=== PATIENT | female | born 1980 | race Native Hawaiian/Other Pacific Islander ===

== ENCOUNTER 2023-02-11 18:13 | Emergency (ER) | payer OTHER ==
[~2023-02-11] VITALS: Ht 160 cm; Wt 99.8 kg
[2023-02-11 18:41] LABS: PLATELET COUNT 341 K/uL (152-353)
[2023-02-11 18:46] LABS: POTASSIUM 3.3 mmol/L (3.6-5.2)
[2023-02-11 20:50] VITALS: BP 107/65; TEMP 97.6
[2023-02-12] MEDS ORDERED: FLUTMIS6 INH (07:43)
[2023-02-12] MEDS ORDERED: BENZ1TAB43 PO (07:45)
[2023-02-12] MEDS ORDERED: TOLNAFTATE TOP (07:45)
[2023-02-12] MEDS ORDERED: CARB200T42 PO (07:47)
[2023-02-12] MEDS ORDERED: DIVA250T PO (07:48)
[2023-02-12] MEDS ORDERED: FISH OIL OMEGA-1 CAP PO (07:49)
[2023-02-12] MEDS ORDERED: ZIPR80CA PO (07:49)
[2023-02-12] MEDS ORDERED: HYDR25TA60 PO (07:50)
[2023-02-12] MEDS ORDERED: CLON1TAB18 PO (07:51)
[2023-02-12] MEDS ORDERED: KETOCONAZOLE21 TOP (07:51)
[2023-02-12] MEDS ORDERED: KLOR-CON M1010 MEQ PO (07:52)
[2023-02-12] MEDS ORDERED: FURO20TA67 PO (07:55)
[2023-02-12] MEDS ORDERED: LACTULOSE10 GM/15 M PO (07:55)
[2023-02-12] MEDS ORDERED: LEVE500T5 PO (07:56)
[2023-02-12] MEDS ORDERED: LEVO0.0218 PO (07:57)
[2023-02-12] MEDS ORDERED: MOBIC7.5 M1 PO (07:58)
[2023-02-12] MEDS ORDERED: METO-837 PO (07:58)
[2023-02-12] MEDS ORDERED: ZYPREXA ZYDI5 MG PO (08:00)
[2023-02-12] MEDS ORDERED: OMEPRAZOLE DR20 MG PO (08:00)
[2023-02-12] MEDS ORDERED: ROPINIROLE0.25 MG PO (08:01)
[2023-02-12] MEDS ORDERED: RISPERIDONE PO (08:04)
[2023-02-12] MEDS ORDERED: SODI1TAB PO (08:05)
[2023-02-12] MEDS ORDERED: TRAM50TA PO (08:06)
[2023-02-12] MEDS ORDERED: ONDANSETRON4 M2 PO (08:07)
[2023-02-18] MEDS ORDERED: FURO20TA67 PO (13:02)
[2023-02-18] MEDS ORDERED: DIVALPROEX250 MG PO (13:02)
[2023-02-18] MEDS ORDERED: CLON0.5T36 PO (13:02)
[2023-02-18] MEDS ORDERED: LEVE500T5 PO (13:02)
[2023-02-18] MEDS ORDERED: HYDR25TA60 PO (13:02)
[2023-02-18] MEDS ORDERED: LACTSYP31 PO (13:03)
[2023-02-18] MEDS ORDERED: LEVOFLOXACIN500 MG PO (13:04)
[2023-02-18] MEDS ORDERED: LEVO0.0529 PO (13:04)
[2023-02-18] MEDS ORDERED: OLANZAPINE5 MG PO (13:05)
[2023-02-18] MEDS ORDERED: PANTOPRAZOLE 40MG TA PO (13:05)
[2023-02-18] MEDS ORDERED: MELOXICAM7.5 MG PO (13:05)
[2023-02-18] MEDS ORDERED: METO-837 PO (13:05)
[2023-02-18] MEDS ORDERED: ULTRAM 50MG TAB PO (13:06)
[2023-02-18] MEDS ORDERED: SOD CHLORIDE1 GM PO (13:06)
[2023-02-18] MEDS ORDERED: POTA10CA3 PO (13:06)
== END 2023-02-11 20:50 | disposition other institution (70) ==
LOC: ED 18:13
PROVIDERS: Family Medicine
DX: F29 Unspecified psychosis not due to a substance or known physiological condition (principal); F20.9 Schizophrenia, unspecified; Z02.79 Encounter for issue of other medical certificate
CPT/HCPCS: 36415; 80053; 81000; 85027; 87077; 87086; 87088; 87186; 87635; 93005; 99283; U0003

== ENCOUNTER 2023-03-18 16:40 | Emergency (ER) | payer OTHER ==
[~2023-03-18] VITALS: Ht 160 cm; Wt 96.6 kg
[~2023-03-18 16:40] MED LIST: BENZ1TAB43 PO; CARB200T42 PO; CLON0.5T36 PO; CLON1TAB18 PO; DIVA250T PO; DIVALPROEX250 MG PO; FISH OIL OMEGA-1 CAP PO; FLUTMIS6 INH; FURO20TA67 PO; HALO5INJ3 IM; HYDR25TA60 PO; KETOCONAZOLE21 TOP; KLOR-CON M1010 MEQ PO; LACTSYP31 PO; LACTULOSE10 GM/15 M PO; LEVE500T5 PO; LEVO0.0218 PO; LEVO0.0529 PO; LEVOFLOXACIN500 MG PO; MELOXICAM7.5 MG PO; METO-837 PO; MOBIC7.5 M1 PO; OLANZAPINE5 MG PO; OMEPRAZOLE DR20 MG PO; ONDANSETRON4 M2 PO; PANTOPRAZOLE 40MG TA PO; POTA10CA3 PO; RISPERIDONE PO; ROPINIROLE0.25 MG PO; SOD CHLORIDE1 GM PO; SODI1TAB PO; TOLNAFTATE TOP; TRAM50TA PO; ULTRAM 50MG TAB PO; ZIPR80CA PO; ZYPREXA ZYDI5 MG PO
[2023-03-18 16:47] VITALS: BP 130/82; TEMP 97.6
[2023-03-18 17:25] LABS: PLATELET COUNT 303 K/uL (152-353)
[2023-03-18 17:41] LABS: POTASSIUM 3.2 mmol/L (3.6-5.2)
[2023-03-18] MEDS ORDERED: HALO50IN4 IM (22:18)
[2023-03-18] MEDS ORDERED: POTASSIUM CHLO20 ME1 PO (22:22)
[2023-03-18] MEDS ORDERED: LEVO0.0218 PO (22:23)
[2023-03-18] MEDS ORDERED: OLANZAPINE7.5 MG PO (22:30)
[2023-03-18] MEDS ORDERED: CLON0.5T36 PO (22:32)
[2023-03-18] MEDS ORDERED: DIVALPROEX500 M1 PO (22:36)
[2023-03-25] MEDS ORDERED: DIVALPROEX500 MG PO (11:42)
[2023-03-25] MEDS ORDERED: FURO20TA67 PO (11:42)
[2023-03-25] MEDS ORDERED: BUDE1AER5 INH (11:42)
[2023-03-25] MEDS ORDERED: CARB200T42 PO (11:42)
[2023-03-25] MEDS ORDERED: CLON0.5T36 PO (11:42)
[2023-03-25] MEDS ORDERED: HALO50IN4 IM (11:43)
[2023-03-25] MEDS ORDERED: LEVE500T5 PO (11:43)
[2023-03-25] MEDS ORDERED: HYDR25TA60 PO (11:43)
[2023-03-25] MEDS ORDERED: LACTSYP31 PO (11:43)
[2023-03-25] MEDS ORDERED: OLAN2.5T2 PO (11:44)
[2023-03-25] MEDS ORDERED: METO-837 PO (11:44)
[2023-03-25] MEDS ORDERED: PANTOPRAZOLE 40MG TA PO (11:44)
[2023-03-25] MEDS ORDERED: POTA20TA4 PO (11:44)
[2023-03-25] MEDS ORDERED: LEVO0.0529 PO (11:44)
[2023-03-25] MEDS ORDERED: SOD CHLORIDE1 GM PO (11:45)
[2023-03-25] MEDS ORDERED: ROPINIROLE0.5 MG PO (11:45)
[2023-03-25] MEDS ORDERED: SERT50TA PO (11:45)
== END 2023-03-18 18:36 | disposition still patient (30) ==
LOC: ED 16:40
PROVIDERS: Family Medicine
DX: R56.9 Unspecified convulsions (principal); R45.6 Violent behavior; Z02.79 Encounter for issue of other medical certificate
CPT/HCPCS: 36415; 80053; 81002; 85027; 87635; 93005; 99285; U0003